=== PATIENT | male | born 1985 | race African-American/Black ===

== ENCOUNTER 2017-09-14 11:47 | Emergency (ER) | payer OTHER ==
[~2017-09-14] VITALS: Ht 180.3 cm; Wt 118.8 kg
[2017-09-14 11:59] VITALS: BP 131/73
[2017-09-14] MEDS ORDERED: GABAPENTIN300 MG ORAL (11:59)
[2017-09-14] MEDS ORDERED: CYCLOBENZAPRINE10 MG ORAL (11:59)
--- NOTE | 2017-09-14 14:23 | Emergency Room Report ---
History of Present Illness General Chief Complaint: Pain Source: Patient Present Illness HPI Patient presents emergency department today complaining of left foot pain. Patient also complains leg swelling. Patient states that he has a family history of DVTs. He states that he's her walking on the sand and thinks he might strained his leg since yesterday. He's had worsening pain in this area. The pain is worse over the left lateral aspect of his foot and radiates up into his mid calf. Patient denies any chest pain shortness of breath. He denies any nausea vomiting diarrhea chills denies any trauma. Symptoms noted to be moderate to severe.No other modifying factors. No other associated signs and symptoms. No other complaints were noted. Allergies: Coded Allergies: PENICILLINS (Verified Allergy, Unknown, 09/14/17) Patient History Past Medical History: none Past Surgical History: none Pertinent Family History: none Social History: Denies: smoking, alcohol use, drug use Reviewed Nursing Documentation: PMH: Agreed, PSxH: Agreed Nursing Documentation-PMH Hx Neurological Problems: Yes - SPINAL STENOSIS Review of Systems All Other Systems: negative except mentioned in HPI Physical Exam Vital Signs Date Time Temp Pulse Resp B/P (MAP) Pulse Ox O2 Delivery O2 Flow Rate FiO2 09/14/17 11:54 98.1 75 16 131/73 95 Sp02 EP Interpretation: reviewed, normal General Appearance: normal inspection, well appearing, no apparent distress, alert Head: atraumatic Eyes: bilateral eye normal inspection ENT: normal ENT inspection, hearing grossly normal, normal voice Neck: normal inspection, full range of motion, supple, no bony tend Respiratory: normal inspection, lungs clear, normal breath sounds, no respiratory distress, no retraction, no wheezing Cardiovascular #1: regular rate, rhythm, no edema Gastrointestinal: normal inspection, normal bowel sounds, non tender, soft, no guarding, no hernia Genitourinary: no CVA tenderness Musculoskeletal: back normal, normal range of motion, swelling - left foot Neurologic: normal inspection, alert, responsive, speech normal Psychiatric: normal inspection, judgement/insight normal, mood/affect normal Skin: normal inspection, normal color, no rash Medical Decision Making Diagnostic Impression: Primary Impression: Left foot pain ER Course Patient presents emergency department today complaining of foot pain. Differential considerations include fracture dislocation versus strain versus DVT. Given patient's presentation I felt ultrasound was indicated rule out DVT. Patient's x-ray was negative. If ultrasounds negative I feel the patient be discharged home. Other X-Ray Diagnostic Results Other X-Ray Diagnostic Results #1: X-Ray ordered: left foot # of Views/Limited Vs Complete: 3 View Indication: Pain EP Interpretation: Yes Interpretation: no dislocation, no soft tissue swelling, no fractures Impression: No acute disease Electronically Signed by: Electronically signed by Brit Camilo MD Other X-Ray Diagnostic Results #2: X-Ray ordered: left ankle # of Views/Limited Vs Complete: 3 View Indication: Pain EP Interpretation: Yes Interpretation: no dislocation, no soft tissue swelling, no fractures Impression: No acute disease Electronically Signed by: Electronically signed by Brit Camilo MD Last Vital Signs Date Time Temp Pulse Resp B/P (MAP) Pulse Ox O2 Delivery O2 Flow Rate FiO2 09/14/17 11:59 98.1 75 16 131/73 95 Status: improved Disposition: HOME, SELF-CARE Condition: Stable Referrals: NOT CHOSEN [facility]/,REFERRING (PCP) BRIT CAMILO M.D. Sep 14, 2017 14:23
[2017-09-14 15:02] VITALS: BP 131/73
--- NOTE | 2017-09-14 16:38 | Diagnostic Imaging Report ---
Indication: PAIN Technique: 3 views left foot Comparison: none Findings: No acute fractures. No dislocations. There is mild hallux valgus and metatarsus adductus. Joint spaces are preserved Impression: No acute process This agrees with the preliminary interpretation provided by the emergency room physician
--- NOTE | 2017-09-14 16:39 | Diagnostic Imaging Report ---
Indication: PAIN Technique: 3 views of the left ankle Comparison: none Findings: No acute fractures. No dislocations. Joint spaces are preserved. Normal mineralization. No radiopaque foreign body. Impression: Negative This agrees with the preliminary interpretation provided by the emergency room physician
--- NOTE | 2017-09-17 11:22 | Diagnostic Imaging Report ---
APPROVED REPORT CPT Code: 84492 Present Symptoms Comments: Swelling and pain LEFT LEG: Venous imaging reveals a patent deep venous system. There is no evidence of thrombus within the femoral, popliteal or tibial segments. The greater saphenous vein is also within normal limits. Doppler indicates normal spontaneous flow within these segments.
== END 2017-09-14 15:09 | disposition home or self-care (01) ==
LOC: EMR 12:15
DX: M79.672 Pain in left foot (principal); M79.89 Other specified soft tissue disorders; Z88.0 Allergy status to penicillin
CPT/HCPCS: 93971; 99284